=== PATIENT | male | born 1970 | race Caucasian/White ===

== ENCOUNTER 2020-08-31 14:53 | Inpatient (IN) ==
[2020-08-31 16:14] LABS: Basophils # 0.1 10*3/uL (0.0-0.2); Basophils % 0.5 % (0.0-0.8); Eosinophils # 0.5 10*3/uL (0.0-0.87); Hematocrit 29.1 VOL% (42.0-52.0); Hemoglobin 9.7 GM/DL (14.0-18.0); Immature Granulocytes % 0.3 %; Immature Granulocytes Absolute 0.04 #; Lymphocytes # 2.6 10*3/uL (1.4-4.0); Lymphocytes % 21.6 % (21.2-54.2); Mean Corpuscular HGB Conc 33.3 GM/DL (32-36); Mean Corpuscular Volume 96.7 FL (87-102); Mean Platelet Volume 11.9 FL (9.6-12.0); Monocytes % 10.2 % (1.7-12.7); Neutrophils % 63.4 % (38.7-73.9); Platelet Count 328 T/CUMM (130-400); Red Blood Count 3.01 MC/CUMM (3.8-5.5); Red Cell Distribution Width 13.2 % (9.3-17.3); White Blood Count 12.1 T/CUMM (4-12)
[2020-08-31 16:21] LABS: Bilirubin,Urine Negative (Negative); Blood, Urine Moderate mg/dL (Negative); Glucose,Urine (UA) Negative (Negative); Hyaline Casts,Urine 3 /LPF (0-3); Ketones,Urine Negative (Negative); Mucus,Urine Occasional /LPF (Occasional); Nitrite,Urine Negative (Negative); Protein,Urine Negative; RBC,Urine 2 /HPF (0-4); Urine Appearance CLEAR (Clear); Urine Color Straw (Yellow); Urine Specific Gravity 1.005 (1.001-1.035); Urine Urobilinogen < 2.0 EU/DL (0.2-1.0); WBC,Urine 1 /HPF (0-6)
[2020-08-31 16:25] LABS: PT Patient Result 10.3 SECS (9.8-11.9); Partial Thromboplastin Time 23.3 SECS (23.9-33.8)
[2020-08-31 16:31] LABS: Barbiturates Screen,Urine Negative (Negative); Benzodiazepines Screen,Urine Negative (Negative); Cannabinoid Screen,Urine Negative (Negative); Opiate Screen,Urine Negative (Negative); Phencyclidine Screen,Urine Negative (Negative)
[2020-08-31 16:32] LABS: Albumin 3.8 G/DL (3.4-5.0); Bilirubin,Total 0.4 MG/DL (0.2-1.0); Calcium 9.4 MG/DL (8.5-10.1); Osmolality,Calculated 279.2 MOS/KG (273-304)
[2020-08-31 16:33] LABS: Creatinine,Urine Random 76 MG/DL
[2020-08-31] MEDS ORDERED: hydrALAZINE 20 MG/1 ML VIAL IV PRN (18:12)
[2020-08-31] MEDS ORDERED: guaiFENesin/DM ER 600-30 MG TABLET PO PRN (18:12)
[2020-08-31] MEDS ORDERED: ALBUTEROL/IPRATROPIUM 3 ML NEB RESP TX PRN (18:12)
[2020-08-31] MEDS ORDERED: DEXTROSE 50% 25 GM/50 ML VIAL IV PRN (18:12)
[2020-08-31] MEDS ORDERED: MORPHINE 4 MG/1 ML VIAL IV PRN (18:12)
[2020-08-31] MEDS ORDERED: DOCUSATE SODIUM 100 MG CAPSULE PO PRN (18:12)
[2020-08-31] MEDS ORDERED: PROMETHAZINE 25 MG/1 ML VIAL IM PRN (18:12)
[2020-08-31] MEDS ORDERED: GLUCAGON 1 MG VIAL IM PRN (18:12)
[2020-08-31] MEDS ORDERED: ONDANSETRON 4 MG/2 ML VIAL IV PRN (18:12)
[2020-08-31] MEDS ORDERED: ACETAMINOPHEN 325 MG TABLET PO PRN (18:12)
[2020-08-31] MEDS ORDERED: LACTULOSE 20 GM/30 ML UDCUP PO PRN (18:12)
[2020-08-31] MEDS ORDERED: ENOXAPARIN 40 MG/0.4 ML SYRINGE SUBCUT SCH (21:00)
[2020-08-31] MEDS: SODIUM CHLORIDE 0.9% 1,000 ML IV SCH (21:30)
[2020-09-01 04:22] LABS: Basophils # 0.1 10*3/uL (0.0-0.2); Basophils % 0.8 % (0.0-0.8); Eosinophils # 0.4 10*3/uL (0.0-0.87); Eosinophils % 4.2 % (0.00-10.9); Hematocrit 27.8 VOL% (42.0-52.0); Hemoglobin 9.1 GM/DL (14.0-18.0); Immature Granulocytes % 0.3 %; Immature Granulocytes Absolute 0.03 #; Lymphocytes # 3.2 10*3/uL (1.4-4.0); Lymphocytes % 32.4 % (21.2-54.2); Mean Corpuscular HGB Conc 32.7 GM/DL (32-36); Mean Corpuscular Volume 97.2 FL (87-102); Monocytes % 10.4 % (1.7-12.7); Neutrophils % 51.9 % (38.7-73.9); Platelet Count 294 T/CUMM (130-400); Red Blood Count 2.86 MC/CUMM (3.8-5.5); White Blood Count 9.7 T/CUMM (4-12)
[2020-09-01 04:51] LABS: Albumin 3.3 G/DL (3.4-5.0); Bilirubin,Total 0.5 MG/DL (0.2-1.0); Calcium 9.2 MG/DL (8.5-10.1); Osmolality,Calculated 288.5 MOS/KG (273-304); Risk Ratio 5.16; Thyroid Stimulating Hormone 0.177 uIU/ml (0.358-3.74); Total Protein 6.9 G/DL (6.4-8.3); VLDL CHOLESTEROL 37.6 MG/DL
[2020-09-01] MEDS: SODIUM CHLORIDE 0.9% 1,000 ML IV SCH ×2 (06:16→13:50)
[2020-09-01] MEDS ORDERED: PANTOPRAZOLE 40 MG TABLET PO SCH (09:00)
[2020-09-01] MEDS: NICOTINE 21 MG/24 HR PATCH TRANSDERM PRN ×2 (09:48→15:40)
[2020-09-01] MEDS: LORazepam 2 MG/1 ML VIAL IV PRN ×2 (11:55→15:40)
[2020-09-01] MEDS ORDERED: ESCITALOPRAM 10 MG TABLET PO SCH (15:00)
[2020-09-01] MEDS ORDERED: ZIPRASIDONE 20 MG/1 ML VIAL IM ONE (16:25)
[2020-09-01] MEDS ORDERED: ENOXAPARIN 30 MG/0.3 ML SYRINGE SUBCUT SCH (21:00)
[2020-09-02 04:03] VITALS: BP 117/74
[2020-09-02 05:58] LABS: Basophils # 0.1 10*3/uL (0.0-0.2); Basophils % 0.7 % (0.0-0.8); Eosinophils # 0.5 10*3/uL (0.0-0.87); Eosinophils % 5.5 % (0.00-10.9); Hematocrit 27.5 VOL% (42.0-52.0); Hemoglobin 9.1 GM/DL (14.0-18.0); Immature Granulocytes % 0.4 %; Immature Granulocytes Absolute 0.03 #; Lymphocytes # 2.7 10*3/uL (1.4-4.0); Lymphocytes % 31.6 % (21.2-54.2); Mean Corpuscular HGB Conc 33.1 GM/DL (32-36); Mean Corpuscular Volume 98.2 FL (87-102); Mean Platelet Volume 12.5 FL (9.6-12.0); Monocytes % 11.8 % (1.7-12.7); Platelet Count 313 T/CUMM (130-400); White Blood Count 8.5 T/CUMM (4-12)
[2020-09-02 06:21] LABS: Albumin 3.3 G/DL (3.4-5.0); Bilirubin,Total 0.4 MG/DL (0.2-1.0); Calcium 9.3 MG/DL (8.5-10.1); Osmolality,Calculated 295.8 MOS/KG (273-304); Total Protein 7.1 G/DL (6.4-8.3)
[2020-09-02 06:31] LABS: Folate 7.2 NG/ML (5.4-24.0); Vitamin B12 1729 PG/ML (211-911)
[2020-09-02 06:32] LABS: Parathyroid Hormone Intact 46.9 PG/ML (18.4-80.1)
[2020-09-02 06:33] LABS: % Iron Saturation 21.3 % (18-50); Ferritin 87.4 ng/ml (26-388); Free T4 (Free Thyroxine) 1.2 NG/DL (0.76-1.46); Total Protein 7.2 G/DL (6.4-8.3); Uric Acid 8.6 MG/DL (3.5-7.2)
[2020-09-02 07:59] LABS: Immunoglobulin A (Chem) 119 MG/DL (70-400); Immunoglobulin G (Chem) 1050 MG/DL (700-1600); Immunoglobulin M (Chem) 109 MG/DL (40-230); Total Protein (Chem) 7.2 G/DL (6.4-8.3)
[2020-09-02] MEDS ORDERED: clonazePAM 0.5 MG TABLET PO SCH (09:00)
[2020-09-02] MEDS ORDERED: ESCITALOPRAM 10 MG TABLET PO SCH (09:00)
[2020-09-02 09:33] LABS: Albumin (SPE) 4.6 G/DL (3.2-5.3); Albumin (SPE) Rel % 63.4 %; Alpha 1 (SPE) 0.2 G/DL (0.1-0.4); Alpha 1 (SPE) Rel % 2.8 %; Alpha 2 (SPE) 0.7 G/DL (0.4-1.0); Alpha 2 (SPE) Rel % 10.3 %; Beta (SPE) 0.7 G/DL (0.5-1.1); Beta (SPE) Rel % 9.5 %
[2020-09-02 12:43] LABS: Immuno Free Light Chain Kappa 8.57 MG/DL (0.33-1.94); Immuno Free Light Chain Lambda 3.02 MG/DL (0.57-2.63); Immuno Free Light Chain Ratio 2.84 MG/DL (0.26-1.65)
== END 2020-09-02 12:30 | disposition left against medical advice (07) | DRG 683 ==
LOC: N.ED 14:53 → N.EDINP 18:12 → SUATTDRO 18:12 → N.5E 19:40 → N.ICU 09-01 16:37
PROVIDERS: ADMIT Internal Medicine; ATTEND Internal Medicine